=== PATIENT | male | born 1970 | race American Indian/Alaskan Native ===

== ENCOUNTER 2021-04-13 13:03 | Outpatient (CLI) | payer BC ==
--- NOTE | 2021-04-15 11:45 | Electrocardiograph Report ---
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
== END 2021-04-13 13:04 | disposition home or self-care (01) ==
LOC: CARD 13:03
DX: Z01.818 Encounter for other preprocedural examination (principal)
CPT/HCPCS: 93005